=== PATIENT | female | born 1980 | race African-American/Black ===

== ENCOUNTER 2016-05-07 22:10 | Emergency (ER) | payer OTHER ==
--- NOTE | ~2016-05-07 | CR109 ---
[facility] A Service of [facility] & [facility] RADIOLOGY TEXT RESULTS PATIENT: MARKO LEIGH LOCATION: [facility] : 76 UNIT #: [id number] AGE: [address]: Monica Burton MD SEX: F ORDER DR: [id number] [facility] [address] [place], [place] [address] [id number] MR#: [id number] Acc #: [id number] NAME: MARKO LEIGH : 1980 SEX: F STUDY DATE/TIME: 05/07/2016 22:02 UNIT: [facility] ROOM: STUDY DESCRIPTION: CR Finger 2 View 2nd Rt Attending Physician: Monica Burton M.D. Ordering Physician: Hamzah Juarez M.D. Primary Care Physician: Clovis Cordero M.D. MEDICAL IMAGING REPORT This report is preliminary unless electronic signature is present EXAM Right second finger 3 views 05/07/2016. HISTORY Pain diffusely throughout right second finger status post fall today. FINDINGS 3 views of the right second finger demonstrate oblique fracture through the medial base of the second distal phalanx. Fracture line extends to the distal interphalangeal joint space. No other fracture or dislocation is seen. The bones are normally mineralized. There is soft tissue swelling about the fracture. IMPRESSION Oblique fracture through the base of the second distal phalanx. Dictated by... Andrew Hancock M.D. THIS IS AN ELECTRONICALLY VERIFIED REPORT Andrew Hancock M.D. at 05/08/2016 2:56 PM JULIA/frankie TD: 05/08/2016 08:51 JOB #: [id number] MEDICAL IMAGING REPORT COPY
[~2016-05-07 22:10] MED LIST: LEVAQUIN PO; MUCINEX PO; NORCO 5/325 TAB1 TAB PO; PREDNISONE10 MG/DOSE PO
== END 2016-05-08 00:17 | disposition home or self-care (01) ==
LOC: CED 22:10
DX: S62.630A Displaced fracture of distal phalanx of right index finger, initial encounter for closed fracture (principal); J45.909 Unspecified asthma, uncomplicated; F17.210 Nicotine dependence, cigarettes, uncomplicated; W19.XXXA Unspecified fall, initial encounter; Y92.009 Unspecified place in unspecified non-institutional (private) residence as the place of occurrence of the external cause
CPT/HCPCS: 29130; 73140; 99283

== ENCOUNTER 2016-08-22 18:33 | Emergency (ER) | payer OTHER ==
--- NOTE | ~2016-08-22 | US98 ---
[facility] A Service of [facility] & [facility] RADIOLOGY TEXT RESULTS PATIENT: MARKO LEIGH LOCATION: [facility] : 76 UNIT #: [id number] AGE: [address]: Monica Burton MD SEX: F ORDER DR: [id number] [facility] [address] [place], [place] [address] [id number] E MR#: [id number] Acc #: [id number] NAME: MARKO LEIGH : 1980 SEX: F STUDY DATE/TIME: 08/22/2016 21:57 UNIT: [facility] ROOM: STUDY DESCRIPTION: US Pelvic Non-OB Complete Attending Physician: Monica Burton M.D. Ordering Physician: Cr Sharma A.P.R.N. Primary Care Physician: Clovis Cordero M.D. MEDICAL IMAGING REPORT This report is preliminary unless electronic signature is present EXAM Transabdominal and transvaginal pelvic ultrasound, 08/22/2016 HISTORY 36-year-old female with pelvic pain for 2 days. COMPARISON Pelvic ultrasound 10/26/2012 and transvaginal pelvic ultrasound 01/09/2014 FINDINGS Transabdominal and transvaginal scanning of the pelvis was performed. Uterus is normal in size and echogenicity, measuring 10 cm from cervix to fundus. The endometrium is mildly prominent, measuring 12 mm in thickness. This may be related to phase of menstrual cycle. The right ovary is not visualized. Right adnexa unremarkable. The left ovary measures 2.7 cm x 1.8 cm x 2.5 cm in size. Multiple physiologic follicles. Normal vascular flow in the left ovary. No significant free pelvic fluid. IMPRESSION 1. Mildly thickened endometrial echo complex, likely secondary to phase of menstrual cycle. 2. Right ovary not visualized. 3. Left ovary appears within normal limits with multiple physiologic follicles and normal vascular flow. Dictated by... Cr Rosado M.D. THIS IS AN ELECTRONICALLY VERIFIED REPORT Cr Rosado M.D. at 08/23/2016 6:16 PM [facility] A Service of [facility] & [facility] RADIOLOGY TEXT RESULTS PATIENT: MARKO LEIGH LOCATION: [facility] : 76 UNIT #: [id number] AGE: [address]: Monica Burton MD SEX: F ORDER DR: BALTAZAR/gabriela TD: 08/23/2016 00:29 JOB #: [id number] MEDICAL IMAGING REPORT Page 1 of 1 COPY
[2016-08-22 19:40] LABS: BASOPHIL% 0.6 % (0-2.5); EOSINOPHIL# 0.4 X10e3 (0-0.7); EOSINOPHIL% 5.7 % (0.0-7.0); HEMATOCRIT 29.6 % (35.0-45.0); HEMOGLOBIN 9.6 gm/dL (12.0-16.0); LYMPHOCYTE# 2.5 X10e3 (1.0-3.5); LYMPHOCYTE% 38.2 % (17.0-45.0); MEAN CELL VOLUME 78.7 FL (83-96); MEAN CORPUSCULAR HEMOGLOBIN 25.5 PG (28-34); MEAN CORPUSCULAR HGB CONC 32.5 g/dL (30-36); MEAN PLATELET VOLUME 7.7 FL (6.5-11.5); MONOCYTE# 0.4 X10e3 (0-1.0); MONOCYTE% 5.4 % (3.0-12.0); NEUTROPHIL# 3.2 X10e3 (1.5-7.1); NEUTROPHIL% 50.1 % (40-75); PLATELET COUNT 265 X10e3 (140-420); RED BLOOD COUNT 3.76 X10e (3.90-5.30); RED CELL DISTRIBUTION WIDTH 16.6 % (11.0-15.5); WHITE BLOOD COUNT 6.5 X10e3 (4.0-10.5)
[2016-08-22 19:42] LABS: DIFF IND NO
[2016-08-22 20:12] LABS: BILIRUBIN,TOTAL 0.7 mg/dL (0.2-2.0); BUN/CREATININE RATIO 12.85; CALCIUM SERUM 8.9 mg/dL (8.4-10.2); CREATININE SERUM 0.7 mg/dL (0.6-1.4); GLOM FILT RATE Estimated 127.4 mL/min (>60); PROTEIN TOTAL SERUM 6.7 g/dL (6.0-8.3)
[2016-08-22 20:23] LABS: URINE SOURCE CLEAN CATCH
[2016-08-22 20:47] LABS: URINE APPEARANCE CLEAR; URINE BILIRUBIN NEG (NEG); URINE BLOOD NEG (NEG); URINE COLOR YELLOW; URINE GLUCOSE NEG (NEG); URINE KETONE 2+ (NEG); URINE LEUKOCYTE ESTERASE 1+ (NEG); URINE NITRATE NEG (NEG); URINE PH 8.5 (5-8); URINE PROTEIN NEG (NEG); URINE SPECIFIC GRAVITY 1.028 (1.003-1.035)
[2016-08-22 20:50] LABS: CULTURE INDICATED? YES; URINE BACTERIA AUWI 4+ (NEGATIVE); URINE SQUAMOUS EPITHELIAL CELL FEW /[HPF]
[2016-08-25 19:48] LABS: CHLAMYDIA TRACH Not Detected (Not Detected); N GONOR Not Detected (Not Detected)
== END 2016-08-22 23:00 | disposition home or self-care (01) ==
LOC: CED 18:33
PROVIDERS: Nurse Practitioner
DX: N39.0 Urinary tract infection, site not specified (principal); E87.6 Hypokalemia; J45.909 Unspecified asthma, uncomplicated; F17.200 Nicotine dependence, unspecified, uncomplicated; M32.9 Systemic lupus erythematosus, unspecified; Z88.5 Allergy status to narcotic agent; Z88.6 Allergy status to analgesic agent; Z91.040 Latex allergy status
CPT/HCPCS: 76830; 76856; 80053; 81003; 84703; 85025; 87086; 87088; 87186; 87491; 87591; 87808; 87905; 96372; 99284; J0696